=== PATIENT | male | born 1995 | race Caucasian/White ===

== ENCOUNTER 2017-05-02 20:34 | Emergency (ER) | payer BC ==
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
[2017-05-02 22:39] VITALS: BP 121/76
== END 2017-05-02 22:00 | disposition home or self-care (01) ==
LOC: ED 20:34
DX: S69.91XA Unspecified injury of right wrist, hand and finger(s), initial encounter (principal); V19.9XXA Pedal cyclist (driver) (passenger) injured in unspecified traffic accident, initial encounter; Y93.9 Activity, unspecified; Y92.9 Unspecified place or not applicable; Y99.9 Unspecified external cause status
CPT/HCPCS: 99282